=== PATIENT | male | born 1955 | race Caucasian/White ===

== ENCOUNTER 2018-03-04 17:25 | Observation (INO) | payer BC ==
[2018-03-04 18:03] LABS: BASOPHILS % (AUTO) 0.4 %; EOSINOPHILS # (AUTO) 0.1 10^3/uL (0.0-0.7); EOSINOPHILS % (AUTO) 0.7 %; HGB - HEMOGLOBIN 14.7 g/dL (14.0-18.0); LYMPHOCYTES # (AUTO) 1.1 10^3/uL (1.5-3.5); LYMPHOCYTES % (AUTO) 14.2 %; MEAN CORPUSCULAR HEMOGLOBIN 30.7 pg (27.0-31.0); MEAN CORPUSCULAR HGB CONC 33.3 g/dL (32.0-36.0); MEAN CORPUSCULAR VOLUME 92.1 fL (80.0-94.0); MEAN PLATELET VOLUME 8.8 fL (7.4-11.4); MONOCYTES # (AUTO) 0.5 10^3/uL (0.0-1.0); MONOCYTES % (AUTO) 6.4 %; NEUTROPHILS % (AUTO) 78.3 %; PLT - PLATELET COUNT 252 10^3/uL (130-450); RED BLOOD COUNT 4.78 10^6/uL (4.70-6.10); RED CELL DISTRIBUTION WIDTH 13.8 % (12.0-15.0); WHITE BLOOD COUNT 7.7 x10^3/uL (4.8-10.8)
[2018-03-04 18:15] LABS: ALBUMIN 4.4 g/dL (3.2-5.5); ALBUMIN/GLOBULIN RATIO 1.2 (1.0-2.2); ALKALINE PHOSPHATASE 89 IU/L (42-121); ALT ALANINE AMINOTRANSFERASE 32 IU/L (10-60); AST ASPARTATE AMINOTRANSFERASE 38 IU/L (10-42); BILIRUBIN,TOTAL 0.9 mg/dL (0.2-1.0); BUN - BLOOD UREA NITROGEN 16 mg/dL (6-20); CALCIUM 9.3 mg/dL (8.5-10.3); CARBON DIOXIDE - CO2 25 mmol/L (21-32); CHLORIDE 98 mmol/L (101-111); CREATININE 1.1 mg/dL (0.6-1.2); GFR - MDRD 68 (>89); GLUCOSE 122 mg/dL (70-100); LIPASE 30 U/L (22-51); SODIUM 134 mmol/L (135-145); TOTAL PROTEIN 8.1 g/dL (6.7-8.2)
--- NOTE | 2018-03-04 18:39 | ED Physician Documentation ---
PD HPI SYNCOPE - Stated complaint Stated Complaint: POSS SZ - Chief complaint Chief Complaint: Neuro - History obtained from History obtained from: Patient, Family - History of Present Illness Witnessed: Witnessed Timing - onset: Today Duration: Minutes (1) Preceding symptoms: Unknown Associated symptoms: Other (family states he was "stiff" and urinated on himself ) Contributing factors: Other (sitting in a chair today). No: Recent med change , Decreased PO intake, Noxious stimulae, Emotional upset, Just stood up, Exertion Injury occurred: No: Fell, Head injury, Neck injury, Bit tongue Pain level max: 0 Pain level now: 0 Similar symptoms before: Has not had sx before Recently seen: Not recently seen - Additional information Additional information: states usually drinks a few beers per day and states he has had 5-6 today. Visiting from [place]. No chest pain. No palpitations. No lightheadedness or prodrome. Review of Systems Ten Systems: 10 systems reviewed and negative Constitutional: denies: Fever, Chills Ears: denies: Ear pain Nose: denies: Rhinorrhea / runny nose, Congestion Throat: denies: Sore throat Cardiac: denies: Chest pain / pressure, Palpitations Respiratory: denies: Dyspnea, Cough GI: denies: Abdominal Pain, Nausea, Vomiting, Diarrhea : denies: Dysuria Skin: denies: Rash Musculoskeletal: denies: Neck pain, Back pain Neurologic: denies: Focal weakness, Numbness, Confused, Altered mental status, Headache, Head injury, LOC PD PAST MEDICAL HISTORY - Past Medical History Past Medical History: Yes Cardiovascular: Hypertension GI: GERD - Past Surgical History Past Surgical History: Yes General: Cholecystectomy - Present Medications Home Medications: Ambulatory Orders Medication Instructions Recorded Confirmed Fenofibrate 40 mg PO 03/04/18 Lisinopril [Zestril] 03/04/18 Metoprolol Succinate 03/04/18 - Allergies Allergies/Adverse Reactions: Allergies Allergy/AdvReac Type Severity Reaction Status Date / Time No Known Drug Allergies Allergy Verified 03/04/18 17:34 - Living Situation Living Situation: reports: With family Living Arrangement: reports: At home - Social History Does the pt smoke?: No Smoking Status: Former smoker Does the pt drink ETOH?: Yes ETOH Use: Beer Does the pt have substance abuse?: No - Family History Family history: reports: Non contributory PD ED PE NORMAL - Vitals Vital signs reviewed: Yes - General General: Alert and oriented X 3, No acute distress, Well developed/nourished - HEENT HEENT: PERRL, Moist mucous membranes - Neck Neck: Supple, no meningeal sign, No JVD, No bruit - Cardiac Cardiac: RRR, No murmur, Strong equal pulses - Respiratory Respiratory: No respiratory distress, Clear bilaterally - Abdomen Abdomen: Soft, Non tender, Non distended - Derm Derm: Warm and dry, No rash - Extremities Extremities: No edema, No calf tenderness / cord - Neuro Neuro: Alert and oriented X 3, 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, No motor deficit, No sensory deficit, Normal speech Eye Opening: Spontaneous Motor: Obeys Commands Verbal: Oriented GCS Score: 15 - Psych Psych: Normal mood, Normal affect Results - Vitals Vitals: Vital Signs - 24 hr 03/04/18 03/04/18 17:30 20:29 Temperature 35.7 C L Heart Rate 72 74 Respiratory 16 18 Rate Blood Pressure 145/73 H 147/88 H O2 Saturation 95 97 Oxygen O2 Source Room air - EKG (time done) 1736 Rate: Rate (enter#) (70) Rhythm: NSR, Other (PVC) [place]: Normal Intervals: Normal IN QRS: Normal Ischemia: Normal ST segments Compare to prior EKG: Old EKG unavailable - Labs Labs: Laboratory Tests 03/04/18 03/04/18 03/04/18 17:44 17:56 17:56 WBC 7.7 RBC 4.78 Hgb 14.7 Hct 44.0 MCV 92.1 MCH 30.7 MCHC 33.3 RDW 13.8 Plt Count 252 MPV 8.8 Neut # (Auto) 6.0 Lymph # (Auto) 1.1 L Crosby # (Auto) 0.5 Eos # (Auto) 0.1 Baso # (Auto) 0.0 Absolute Nucleated RBC 0.00 Nucleated RBC % 0.1 PT INR Sodium 134 L Potassium 4.0 Chloride 98 L Carbon Dioxide 25 Anion Gap 11.0 BUN 16 Creatinine 1.1 Estimated GFR (MDRD) 68 L Glucose 122 H POC Whole Bld Glucose 126 H Calcium 9.3 Magnesium Total Bilirubin 0.9 AST 38 ALT 32 Alkaline Phosphatase 89 Troponin I Total Protein 8.1 Albumin 4.4 Globulin 3.7 Albumin/Globulin Ratio 1.2 Lipase 30 Ethyl Alcohol < 5.0 03/04/18 03/04/18 03/04/18 17:56 17:56 17:56 WBC RBC Hgb Hct MCV MCH MCHC RDW Plt Count MPV Neut # (Auto) Lymph # (Auto) Crosby # (Auto) Eos # (Auto) Baso # (Auto) Absolute Nucleated RBC Nucleated RBC % PT 11.9 INR 1.1 Sodium Potassium Chloride Carbon Dioxide Anion Gap BUN Creatinine Estimated GFR (MDRD) Glucose POC Whole Bld Glucose Calcium Magnesium 2.2 Total Bilirubin AST ALT Alkaline Phosphatase Troponin I < 0.04 Total Protein Albumin Globulin Albumin/Globulin Ratio Lipase Ethyl Alcohol - Rads (name of study) head CT Radiology: Prelim report reviewed, EMP read contemporaneously, See rad report ( No acute intracranial abnormality) cxr Radiology: Prelim report reviewed, EMP read contemporaneously, See rad report ( Multiple subcentimeter bilateral lung nodules which appear to be calcified, diffuse prior healed granulomatous disease versus metastatic calcified nodules. 2. No acute consolidation. No pneumothorax. ) PD MEDICAL DECISION MAKING - ED course Complexity details: reviewed results, re-evaluated patient, considered differential, d/w patient, d/w family, d/w networks computer consultant ED course: Patient is a 62-year-old male with syncope versus seizure today. He states he has been drinking alcohol today but his alcohol level is negative. Possible withdrawal seizure? Does not sound like he had a long postictal state however. He did have urinary incontinence. No acute findings on head CT. No tumor mass. No acute findings on chest x-ray. Had no prodrome. Will place him on telemetry and observe him in the hospital for further care. Discussed the case with Dr. Duckworth, hospitalist who accepts. This document was made in part using voice recognition software. While efforts are made to proofread this document, sound alike and grammatical errors may occur. - Sepsis Event Vital Signs: Vital Signs - 24 hr 03/04/18 03/04/18 17:30 20:29 Temperature 35.7 C L Heart Rate 72 74 Respiratory 16 18 Rate Blood Pressure 145/73 H 147/88 H O2 Saturation 95 97 Oxygen O2 Source Room air Departure - Departure Disposition: ED Place in Observation Clinical Impression: Syncope Qualifiers: Syncope type: unspecified Qualified Code(s): R55 - Syncope and collapse Condition: Stable Discharge Date/Time: 03/04/18 21:26
--- NOTE | 2018-03-04 19:03 | XRAY Report ---
Procedure Date: 03/04/2018 Accession Number: [id number] / [id number] Procedure: XR - Chest 1 View X-Ray CPT Code: 76172 FULL RESULT: EXAM: CHEST RADIOGRAPHY EXAM DATE: 03/04/2018 06:51 PM. CLINICAL HISTORY: Syncope vs seizure. COMPARISON: None. TECHNIQUE: 1 view. FINDINGS: Lungs/Pleura: Multiple small bilateral nodules are seen which appear to be calcified. No consolidation no pneumothorax. No pleural effusions. Mediastinum: Heart size and mediastinal contour are within normal limits. Other: No acute osseous abnormalities. IMPRESSION: 1. Multiple subcentimeter bilateral lung nodules which appear to be calcified, diffuse prior healed granulomatous disease versus metastatic calcified nodules. 2. No acute consolidation. No pneumothorax. RADIA
--- NOTE | 2018-03-04 19:16 | CT Report ---
Procedure Date: 03/04/2018 Accession Number: [id number] / [id number] Procedure: CT - Head W/O CPT Code: FULL RESULT: EXAM: CT HEAD EXAM DATE: 03/04/2018 06:46 PM. CLINICAL HISTORY: Syncopal episode. Possible seizure. COMPARISON: None. TECHNIQUE: Multiaxial CT images were obtained from the foramen magnum to the vertex. Reformats: Coronal. IV contrast: None. In accordance with CT protocol optimization, one or more of the following dose reduction techniques were utilized for this exam: automated exposure control, adjustment of mA and/or KV based on patient size, or use of iterative reconstructive technique. FINDINGS: Parenchyma: No intraparenchymal hemorrhage. No evidence of mass, midline shift, or CT findings of infarction. Deluca-white differentiation is distinct. Extraaxial Spaces: Normal for age. No subdural or epidural collections identified. Ventricles: Normal in size and position. Sinuses and Orbits: Middle right ethmoid sinus disease. Severe left maxillary sinus disease and wall thickening. Remainder of the paranasal sinuses and mastoid air cells are clear. Bones: No evidence of fracture or calvarial defect. Other: Subcutaneous soft tissue nodule in the posterior parietal scalp.. IMPRESSION: 1. No acute intracranial abnormality is identified. 2. No acute fracture. 3. Severe left maxillary and right middle ethmoid sinus disease. RADIA
[2018-03-04] MEDS ORDERED: SODIUM CHLORIDE 0.9% 1,000 ML IV ONE ×2 (19:29)
[2018-03-04] MEDS ORDERED: ACETAMINOPHEN 325 MG TABLET PO PRN (20:40)
[2018-03-04] MEDS ORDERED: PROCHLORPERAZINE 10 MG/2 ML VIAL IVP PRN (20:40)
[2018-03-04] MEDS ORDERED: SODIUM CHLORIDE FLUSH 0.9% 10 ML SYRINGE IVP PRN (20:40)
[2018-03-04 20:55] LABS: MUDS CUTOFF CONCENTRATIONS CUTOFF CONC BELOW:
[2018-03-04 20:57] LABS: BILIRUBIN,URINE NEGATIVE (NEGATIVE); GLUCOSE, URINE (UA) NEGATIVE (NEGATIVE); KETONES,URINE (UA) NEGATIVE (NEGATIVE); LEUKOCYTE ESTERASE, URINE NEGATIVE (NEGATIVE); NITRITE,URINE NEGATIVE (NEGATIVE); OCCULT BLOOD,URINE LARGE (NEGATIVE); PH,URINE 5.5 PH (5.0-7.5); PROTEIN,URINE NEGATIVE (NEGATIVE); UROBILINOGEN,URINE 0.2 (NORMAL) E.U./dL (NORMAL)
[2018-03-04 20:58] LABS: CLARITY,URINE HAZY (CLEAR)
[2018-03-04 21:08] LABS: AMPHETAMINE SCREEN,URINE NEGATIVE (NEGATIVE); BENZODIAZEPINES SCREEN, URINE NEGATIVE (NEGATIVE); COCAINE SCREEN URINE NEGATIVE (NEGATIVE); METHADONE SCREEN, URINE NEGATIVE (NEGATIVE); METHAMPHETAMINES SCREEN, URINE NEGATIVE (NEGATIVE); OPIATE SCREEN, URINE NEGATIVE (NEGATIVE); OXYCODONE SCREEN, URINE NEGATIVE (NEGATIVE); TRICYCLIC ANTIDEPRESSANT,URINE NEGATIVE (NEGATIVE)
[2018-03-04 21:09] LABS: PROPOXYPHENE SCREEN, URINE NEGATIVE (NEGATIVE)
[2018-03-04 21:12] LABS: BACTERIA,URINE Few /HPF (None Seen); SQUAMOUS EPITHELIAL CELL,UR FEW Squamous (<= Few)
[2018-03-04 21:35] LABS: INR 1.1 (0.8-1.2); PT - PROTHROMBIN TIME 11.9 secs (9.9-12.6)
[2018-03-04] MEDS: DEXTROSE 5%-0.9% NACL 1,000 ML IV SCH (22:18)
[2018-03-05] MEDS: SODIUM CHLORIDE FLUSH 0.9% 10 ML SYRINGE IVP SCH ×2 (01:29→08:24)
--- NOTE | 2018-03-05 01:35 | Ultrasound Report ---
Procedure Date: 03/04/2018 Accession Number: [id number] / [id number] Procedure: US - Carotid Doppler Complete CPT Code: FULL RESULT: EXAM: BILATERAL CAROTID AND VERTEBRAL ARTERY DUPLEX DOPPLER ULTRASOUND: EXAM DATE: 03/04/2018 11:15 PM CLINICAL HISTORY: Syncope. COMPARISON: None. TECHNIQUE: Grayscale imaging, color Doppler, and duplex spectral Doppler were used to evaluate the carotid and vertebral arteries bilaterally. Static images were obtained. FINDINGS: Moderate atheromatous plaques are present in the right carotid bulb extending into the internal carotid artery. However, no hemodynamically significant stenoses are noted. Moderate atheromatous plaques are present in the left carotid bulb extending into the internal carotid artery. However, no hemodynamically significant stenoses are noted. Visualized portions of the neck soft tissues are grossly unremarkable. Both vertebral arteries are antegrade in flow. VELOCITIES: Right: RCCA Prox: PSV 78.4 cm/sec. RCCA Dist: PSV 61.1 cm/sec, EDV 15.1 cm/sec. RECA: PSV 129 cm/sec. R Bulb: PSV 57.7 cm/sec, EDV 16.2 cm/sec, ICA/CCA ratio 1.0. TAMARA Prox: PSV 60.8 cm/sec, EDV 18.30 cm/sec, ICA/CCA ratio 1.0. TAMARA Mid: PSV 75.8 cm/sec, EDV 19 cm/sec, ICA/CCA ratio 1.3. TAMARA Dist: PSV 66.7 cm/sec, EDV 22.9 cm/sec, ICA/CCA ratio 1.1. RVA: PSV 30 cm/sec. RVA flow direction: Antegrade. Left: LCCA Prox: PSV 141.9 cm/sec. LCCA Dist: PSV 72.8 cm/sec, EDV 1.9 cm/sec. LECA: PSV 74 cm/sec. L Bulb: PSV 50.4 cm/sec, EDV 1.9 cm/sec, ICA/CCA ratio 0.7. LICA Prox: PSV 40.1 cm/sec, EDV 12.1 cm/sec, ICA/CCA ratio 0.5. LICA Mid: PSV 65.8 cm/sec, EDV 24.3 cm/sec, ICA/CCA ratio 0.9. LICA Dist: PSV 80.7 cm/sec, EDV 0.9 cm/sec, ICA/CCA ratio 1.1. LVA: PSV 69.5 cm/sec. LVA flow direction: Antegrade. ICA diameter stenosis: Right: <50% by velocity and <70% by NASCET criteria. Left: <50% by velocity and <70% by NASCET criteria. Comment: Technically challenging study due to body habitus. IMPRESSION: 1. Moderate bilateral carotid artery plaquing. 2. In the right carotid artery there are no elevated carotid artery velocities to suggest hemodynamically significant stenosis. 3. In the left carotid artery there are no elevated carotid artery velocities to suggest hemodynamically significant stenosis. 4. Normal antegrade flow is present in bilateral vertebral arteries. 5. Technically limited study due to body habitus. General Recommendations: Stenosis =50% ICA - Follow-up ultrasound 6-12 months Stenosis <50% ICA - High Risk Patient with plaque - Follow-up ultrasound 1-2 years Normal Study but High Risk Patient - Follow-up ultrasound 3-5 years Management recommendations and diagnostic criteria are based on current IAC endorsed standards in Carotid Artery Stenosis: Grayscale and Doppler Ultrasound Diagnosis. Validated velocity measurements with angiographic measurements and velocity criteria are extrapolated from diameter data as defined by the Society of Radiologists in Ultrasound Consensus Conference Radiology 2003; 229;340-346. RADIA
--- NOTE | 2018-03-05 02:51 | HISTORY & PHYSICAL EXAMINATION ---
DATE OF SERVICE: 03/04/2018 Physician: Jania Arellano MD HISTORY OF PRESENT ILLNESS: This is a 62-year-old white male who lives in [place] and is visiting here on vacation. He is a full-time long-distance professor of biology. He has a history of hypertension, obesity, and hypertriglyceridemia. He admits that he was "partying on vacation" and having more beers than he normally does. He usually has 1 beer a day and today had about 5 or 6, the last at 3:30 pm. Besides this, he has been having a lot of coffee and states there has not been a lot of any other type of fluid intake such as water or juices. He was sitting today, and at about 4:30pm, without any warning, he became unconscious. He stiffened. He was incontinent of urine. The people near him tried to wake him up and stated that he was not conscious but breathing on his own and "stiff" but had no tonic- clonic activity. He did not fall out of the chair. He awoke on his own after several minutes and was able to know where he was and recognized the people around him (signifying there was no postictal state). An ambulance was called and brought him here. He was fully awake here since admission. He denied this happening previously. He denies any preceding chest pain, palpitations, aura, lightheadedness, diaphoresis, fever, nausea or vomiting. He was started with IV fluid replacement, and he is placed in Observation for further evaluation with labs and other workup for syncope versus seizures. PAST MEDICAL HISTORY 1. Obesity. 2. Hypertension, on medications. 3. Hypertriglyceridemia, on medications. REVIEW OF SYSTEMS: A comprehensive review of systems was performed, and the pertinent positives are in the HPI, the rest are negative. He has never had a stress test or an Echo. He does state that he has been told he has an abnormal chest x-ray with appearance of multiple nodules that appear like "stars in the leslye." He has never had a CAT scan of his chest. ALLERGIES: NONE. MEDICATIONS 1. Fenofibrate 40 mg, unknown frequency. 2. Lisinopril 5 mg, unknown frequency. 3. Toprol-XL 25 mg, unknown frequency. FAMILY HISTORY: Coronary artery disease in his father at the age of 60s, otherwise negative. SOCIAL HISTORY: The patient is an ex-smoker who quit 5 years ago. He drinks 1 beer per day normally. He denies any illicit drug use. PHYSICAL EXAMINATION GENERAL: Obese middle-aged white male. He is in no distress. VITAL SIGNS: Blood pressure 145/73. One set of orthostatic vital signs was done, and there was no drop in systolic blood pressure or change in heart rate, which remains in the mid 60s in sinus rhythm. He is afebrile. Room air saturation 99%. HEENT: Reveals male pattern baldness, and oral mucosa is moist. NECK: Without JVD or carotid bruits. CHEST: Clear. HEART: Sounds normal. No murmur. No RV heave. ABDOMEN: Obese with a pannus. Decreased bowel sounds. Nontender. No organomegaly. EXTREMITIES: No clubbing, cyanosis, or edema. NEUROLOGIC: Intact. LABORATORY DATA: Sodium 134, otherwise normal electrolytes. Glucose 122. Magnesium 2.2. Normal liver tests. Troponins are not detected at less than 0.04 x2. Lipase normal. INR normal at 1.1. White blood count, entire CBC normal. Urine toxicology is entirely negative except for cannabinoids. His ethyl alcohol was not detectable. IMAGING: Chest x-ray: Multiple nodularities consistent with granulomas versus metastatic disease. ELECTROCARDIOGRAM: Normal sinus rhythm, 1 PVC present, borderline voltage for LVH, otherwise unremarkable. IMPRESSION/DIAGNOSES 1. Syncope versus seizure. 2. Abnormal chest x-ray with multiple nodules. 3. Hypertension. 4. Obesity. 5. Hypertriglyceridemia history. 6. Mildly elevated glucose. PLAN 1. Will place the patient in observation. 2. Begin telemetry. 3. Order troponins x3 to rule out a cardiac event. 4. Obtain an echo to evaluate causes for syncope such as IHSS. 5. Obtain a carotid Doppler to rule out carotid stenosis as a cause of syncope. 6. Continue with check of orthostatic vital signs and continue gentle fluid hydration. 7. Obtain a CT scan of his chest regarding the abnormal chest x-ray. 8. Check a lipid panel and A1c. 9. If all findings are negative, the most likely result is dehydration and volume depletion causing orthostasis and syncope. 10. An EEG should be performed, which is not available here. CODE STATUS: FULL CODE. DEEP VENOUS THROMBOSIS PROPHYLAXIS: SCDs. ATTESTATION: The patient is expected to be discharged or transferred to another facility within 96 hours: Yes. TD: 03/04/2018 23:36 LINDEN
[2018-03-05 06:16] LABS: CALCIUM 8.7 mg/dL (8.5-10.3); CREATININE 1.1 mg/dL (0.6-1.2)
[2018-03-05 06:58] LABS: CHOL/HDL RATIO 3.8 (<5.0); CHOLESTEROL 141 mg/dL; HDL CHOLESTEROL 37 mg/dL; LDL CHOLESTEROL,CALCULATED 78 mg/dL; LDL/HDL RATIO 2.1 (<3.6); VLDL CHOLESTEROL 26 mg/dL
[2018-03-05 07:01] LABS: HEMOGLOBIN A1C 0.45 g/dL; HEMOGLOBIN A1C % 5.1 % (4.6-6.2)
[2018-03-05] MEDS: DEXTROSE 5%-0.9% NACL 1,000 ML IV SCH (08:23)
[2018-03-05] MEDS ORDERED: IOPAMIDOL-300 100 ML VIAL ONE (08:36)
--- NOTE | 2018-03-05 08:54 | CT Report ---
Procedure Date: 03/05/2018 Accession Number: [id number] / [id number] Procedure: CT - Chest W/ CPT Code: FULL RESULT: EXAM: Chest W/ DATE: 03/05/2018 8:43 AM CLINICAL HISTORY: Abn CXR, ? mets COMPARISON: Chest x-ray 03/04/2018 TECHNIQUE: Routine helical CT imaging was performed through the chest. IV contrast: 80 mL of Isovue 300 Reconstructions: Coronal and sagittal. In accordance with CT protocol optimization, one or more of the following dose reduction techniques were utilized for this exam: automated exposure control, adjustment of mA and/or KV based on patient size, or use of iterative reconstructive technique. FINDINGS: Lungs/Pleura: There are widespread and diffuse 1 to 2 mm calcified and noncalcified pulmonary nodules bilaterally. No focal consolidation, effusion, or pneumothorax is present. Mediastinum: Normal. No adenopathy or masses. The heart and great vessels are normal. Bones: Unremarkable. Visualized Abdomen: Unremarkable. Other: None. IMPRESSION: Widespread diffuse 1 to 2 mm calcified and noncalcified pulmonary nodules, likely representing old fungal disease. RADIA
[2018-03-05] MEDS ORDERED: POLYETHYLENE GLYCOL 3350 17 GM PACKET PO SCH (09:00)
[2018-03-05] MEDS ORDERED: FAMOTIDINE 20 MG TABLET PO SCH (09:00)
[2018-03-05] MEDS ORDERED: IOPAMIDOL-300 100 ML VIAL IVP ONE (09:09)
--- NOTE | 2018-03-05 11:00 | Discharge Plan ---
Discharge Plan Disposition: 01 Home, Self Care Condition: Stable Diet: Regular Activity Restrictions: Activity as Tolerated Shower Restrictions: No (fall precaution) Weight Bearing: Full Weight Instruction Topics: Syncope, Syncope Causes Additional Instructions or Follow Up instructions: You may follow up your PCP in one week. Should your symptoms return or worsen, you may present ER or call 911 for help. No Smoking: If you smoke, Please STOP! Call for help.
[2018-03-05 11:25] VITALS: BP 112/55
--- NOTE | 2018-03-05 11:29 | DISCHARGE SUMMARY ---
Discharge Summary Discharge Date: 03/05/18 Discharging Provider: RODRIGUEZ Condition at Discharge: Stable Discharge Disposition: 01 Home, Self Care Discharge Facility Name: home - DIAGNOSES Admission Diagnoses: pre-syncope HTN HLD hx of COPD Discharge Diagnoses with Status of Each Condition: pre-syncope, pt did not lost his consciousness. symptoms is totally resolved in hospital. pt's ECHO, CT of head, US of carotid, EKG, serial troponin are unremarkable. CT of chest reveals likely old fungal infection. 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 pt is advised to have EEG as out-pt to r/o seizure, pt agree and he will. HTN stable, continue home regimen, PCP continue management HLD stable, continue home regimen, PCP continue management hx of COPD stable, continue home regimen, PCP continue management - HPI History of Present Illness: pt was admitted for pre-syncope. pt's symptoms totally resolved in the hospital. Pt had ECHO, US of carotid, CT of head, EKG, serial troponin, all were unremarkable. pt agree to have EEG test as out-pt. - ALLERGIES Allergies/Adverse Reactions: Allergies Allergy/AdvReac Type Severity Reaction Status Date / Time No Known Drug Allergies Allergy Verified 03/04/18 17:34 - MEDICATIONS Home Medications: Ambulatory Orders Medication Instructions Recorded Confirmed Fenofibrate 160 mg PO DAILY 03/04/18 03/05/18 Lisinopril [Zestril] 20 mg PO DAILY 03/04/18 03/05/18 Metoprolol Succinate 50 mg PO DAILY 03/04/18 03/05/18 Umeclidinium Brm/Vilanterol Tr 1 puffs IH DAILY 03/05/18 03/05/18 [Anoro Ellipta 62.5-25 Mcg INH] - PHYSICAL EXAM AT DISCHARGE General Appearance: positive: No acute distress, Alert. negative: Lethargic Eyes Bilateral: positive: Normal inspection, PERRL, No lid inflammation, Conjunctivae nml ENT: positive: ENT inspection nml, Pharynx nml, No signs of dehydration. negative: Purulent nasal drainage, Pharyngeal erythema, Oral lesions Neck: positive: Nml inspection, Thyroid nml, No JVD, Trachea midline. negative : Thyromegaly, Lymphadenopathy (R), Lymphadenopathy (L), Stiff neck, Carotid bruit, Swelling/bruising, Tracheal deviation Respiratory: positive: Chest non-tender, No respiratory distress, Breath sounds nml. negative: Wheezes, Rales, Rhonchi Cardiovascular: positive: Regular rate & rhythm, No murmur, No gallop. negative : Irregularly irregular, Extrasystoles, Tachycardia, Bradycardia, JVD present, Systolic murmur, Diastolic murmur Peripheral Pulses: positive: 2+ Abdomen: positive: Non-tender, No organomegaly, Nml bowel sounds, No distention. negative: Tenderness, Guarding, Rebound Back: positive: Nml inspection. negative: CVA tenderness (R), CVA tenderness (L ) Skin: positive: Color nml, No rash, Warm, Dry. negative: Cyanosis, Diaphoresis , Pallor Extremities: positive: Non-tender, Full ROM, Nml appearance. negative: Calf tenderness, Joint swelling, Delfin's sign/cords Neurologic/Psychiatric: positive: Oriented x3, Motor nml, Sensation nml, Mood/ affect nml. negative: Weakness, Sensory loss, Facial droop, Slurred/abnml speech, Depressed mood/affect - LABS Result Diagrams: 03/04/18 17:56 03/05/18 05:57 - FOLLOW UP Follow Up: You may follow up your PCP in one week, have EEG as out-pt. Should your symptoms return or worsen, you may present ER or call 911 for help. - TIME SPENT Time Spent in Discharge (Minutes): 45
== END 2018-03-05 12:22 | disposition home or self-care (01) ==
LOC: ED 17:25 → OBS 20:40
PROVIDERS: ADMIT Internal Medicine; ATTEND Nurse Practitioner Gerontology
DX: R55 Syncope and collapse (principal); R91.8 Other nonspecific abnormal finding of lung field; I10 Essential (primary) hypertension; J44.9 Chronic obstructive pulmonary disease, unspecified; E66.9 Obesity, unspecified; E78.1 Pure hyperglyceridemia; Z68.35 Body mass index [BMI] 35.0-35.9, adult; R73.09 Other abnormal glucose; Z79.899 Other long term (current) drug therapy; Z82.49 Family history of ischemic heart disease and other diseases of the circulatory system; Z87.891 Personal history of nicotine dependence
CPT/HCPCS: 36415; 70450; 71045; 71260; 80048; 80053; 80061; 80306; 80320; 81001; 83036; 83690; 83735; 84484; 85025; 85610; 93005; 93306; 93880; 96360; 96361; 99218; 99284; 99285; A9270; Q9967; 81003; 83721; 87086